=== PATIENT | female | born 1995 ===

== ENCOUNTER → 2017-11-11 | Outpatient (CLI) | payer OTHER | END | disposition home or self-care (01) | LOC: PPHC LAB 16:32 | DX: Z02.0 Encounter for examination for admission to educational institution (principal) ==

== ENCOUNTER → 2017-12-28 | Outpatient (CLI) | payer OTHER | END | disposition home or self-care (01) | LOC: PPH VACUNA 15:52 | DX: Z23 Encounter for immunization (principal) ==

== ENCOUNTER → 2019-09-05 10:09 | Outpatient (CLI) | payer OTHER | END | disposition home or self-care (01) | LOC: LAB 10:09 | DX: R05 Cough (principal); J11.1 Influenza due to unidentified influenza virus with other respiratory manifestations ==